=== PATIENT | male | born 1975 | race Caucasian/White ===

== ENCOUNTER 2020-01-13 07:19 | Emergency (ER) | payer SELFPAY ==
[~2020-01-13] VITALS: Ht 162.6 cm; Wt 68.5 kg
--- NOTE | 2020-01-13 07:20 | NUR ---
[email or web address], found inside his car in front of [employer], altered,found marijuana bottle, to ER bed 12, hooked to monitor. awaiting MD royal.
--- NOTE | 2020-01-13 07:24 | NUR ---
Dr Garland at bedside
--- NOTE | 2020-01-13 07:26 | NUR ---
patient noted to be AO x 4, refusing to provide name.
--- NOTE | 2020-01-13 07:36 | NUR ---
patient provided first, last name and date of , does'nt have personal identification card with him.
--- NOTE | 2020-01-13 07:57 | NUR ---
[employer] at bedside
--- NOTE | 2020-01-13 08:42 | NUR ---
provided w breakfast tray.
--- NOTE | 2020-01-13 08:50 | NUR ---
Patient given written and verbal discharge instructions. Patient verbalizes understanding of instructions. Patient is ambulatory with steady gait. Refuses offer of alf placement. Patient given list of available shelters in surrounding area. All belongings returned to patient, name band removed, in proper clothing upon discharge. Assisted by security out of the facility.
[2020-01-13 08:55] VITALS: BP 139/82
== END 2020-01-13 08:55 | disposition home or self-care (01) ==
LOC: EDBD 07:20 → ER 07:20
DX: G47.8 Other sleep disorders (principal); R45.1 Restlessness and agitation